=== PATIENT | female | born 1995 | race Hispanic/Latino ===

== ENCOUNTER 2020-04-19 08:08 | Emergency (ER) | payer SELFPAY ==
[2020-04-19] MEDS ORDERED: Ondansetron ODT 4 MG TAB ONE (08:33)
--- NOTE | 2020-04-19 08:45 | RAD ---
PORTABLE CHEST: Date: 04/19/2020 HISTORY: Cough. COMPARISON: 11/27/2015. FINDINGS: The lungs are well aerated and appear clear. No infiltrate identified. Heart and mediastinum appear u nremarkable. IMPRESSION: No evidence of acute infiltrate. POS: [facility]
[2020-04-19 08:51] LABS: Bilirubin Negative (Negative); Blood, Urine Negative (Negative); Glucose, Urine (Dipstick) Negative (Negative); Ketone, Urine 40 mg/dL (Negative); Leukocyte Negative (Negative); Nitrite Negative (Negative); Protein, Urine (Dipstick) Negative (Neg-Trace); Urobilinogen 0.2 mg/dL (Less than 2)
[2020-04-19 09:05] LABS: Clarity Clear (Clear)
[2020-04-19 09:06] LABS: Pregnancy Test - Urine (BHCG) Negative (Negative)
[2020-04-19 09:07] LABS: Pregu Control Background? CLEAR/WHITE (CLR/WHITE); Pregu Control Bar Appear? YES (CONTROL BAR)
[2020-04-19] MEDS ORDERED: Ketorolac Tromethamine 30 MG/ML VIAL ONE (09:23)
[2020-04-19 17:05] LABS: SARS-CoV-2 MS2 Positive; SARS-CoV-2 N Gene Negative; SARS-CoV-2 S Gene Negative; SARS-CoV-2 by NAA Not Detected (NotDetected); SARS-CoV-2 orf1ab Negative
== END 2020-04-19 09:45 | disposition home or self-care (01) ==
LOC: ERS 08:08
DX: J02.9 Acute pharyngitis, unspecified (principal); R11.2 Nausea with vomiting, unspecified; Z20.828 Contact with and (suspected) exposure to other viral communicable diseases; F31.9 Bipolar disorder, unspecified; F17.210 Nicotine dependence, cigarettes, uncomplicated
CPT/HCPCS: 71045; 81003; 81025; 87635; 87804; 96372; J1885; Q0162; U0003